=== PATIENT | female | born 1980 | race African-American/Black ===

== ENCOUNTER 2017-04-24 07:36 | Emergency (ER) | payer MEDICAID, OTHER ==
[~2017-04-24] VITALS: Ht 157.5 cm; Wt 64.0 kg
[~2017-04-24 07:36] MED LIST: FERR-63 PO; IBUP-779 PO; MULT-1116 PO
[2017-04-24 08:22] LABS: CLARITY URINE CLEAR (CLEAR); COLOR URINE YELLOW (YELLOW); GLUCOSE URINE NEGATIVE (NEGATIVE); KETONES URINE 1+ (NEGATIVE); LEUKOCYTE ESTERASE URINE NEGATIVE (NEGATIVE); NITRITE URINE NEGATIVE (NEGATIVE); OCCULT BLOOD URINE 3+ (NEGATIVE); PH URINE 6.5 (4.5-8.0); PROTEIN URINE NEGATIVE (NEGATIVE); SPECIFIC GRAVITY URINE 1.007 (1.005-1.030); UROBILINOGEN URINE 0.2 E.U./dL (0.2-1.0)
[2017-04-24 08:46] LABS: BASOPHILS % 0.4 % (0.0-2.0); EOSINOPHILS % 2.9 % (0.0-5.0); HEMATOCRIT. 42.4 % (36.0-48.0); HEMOGLOBIN. 14.2 g/dL (12.0-16.0); MEAN CORPUSCULAR HEMOGLOBIN 30.1 pg (28.0-32.0); MEAN CORPUSCULAR VOLUME 89.6 fL (81.0-99.0); MEAN PLATELET VOLUME 7.2 fl (7.4-10.4); MONOCYTES % 6.8 % (2.0-8.0); NEUTROPHILS % 72.9 % (40.0-76.0); PLATELET 291 x1000/uL (130-400); RED BLOOD CELL COUNT 4.73 mill/uL (4.2-5.4); RED CELL DISTRIBUTION WIDTH 13.7 % (11.6-14.6)
[2017-04-24 09:03] LABS: CARBON DIOXIDE 19 mEq/L (21-32); CHLORIDE 103 mEq/L (98-107)
[2017-04-24 12:20] VITALS: BP 113/75
== END 2017-04-24 12:41 | disposition home or self-care (01) ==
LOC: ER 07:36
DX: N85.8 Other specified noninflammatory disorders of uterus (principal); F17.200 Nicotine dependence, unspecified, uncomplicated
CPT/HCPCS: 36415; 76830; 76856; 80053; 81001; 81025; 85025; 99285; Z7610

== ENCOUNTER 2021-02-27 12:09 | Emergency (ER) | payer MEDICAID, OTHER ==
[~2021-02-27] VITALS: Ht 165.1 cm; Wt 60.0 kg
[2021-02-27] MEDS ORDERED: HYDROCODONE/ACETAMINOPHEN 5/325MG TABLET PO ONE (18:00)
[2021-02-27 18:23] LABS: BASOPHILS % 0.6 % (0.0-2.0); EOSINOPHILS % 4.4 % (0.0-5.0); HEMATOCRIT. 36.6 % (36.0-48.0); HEMOGLOBIN. 12.2 g/dL (12.0-16.0); MEAN CORPUSCULAR HEMOGLOBIN 29.7 pg (28.0-32.0); MEAN CORPUSCULAR VOLUME 88.9 fL (81.0-99.0); MEAN PLATELET VOLUME 7.3 fl (7.4-10.4); PLATELET 245 x1000/uL (130-400); RED BLOOD CELL COUNT 4.12 mill/uL (4.2-5.4); RED CELL DISTRIBUTION WIDTH 13.7 % (11.6-14.6)
[2021-02-27 18:30] LABS: CHLORIDE 106 mEq/L (98-107)
[2021-02-27 18:30] LABS: CLARITY URINE CLEAR (CLEAR); COLOR URINE YELLOW (YELLOW); KETONES URINE NEGATIVE (NEGATIVE); LEUKOCYTE ESTERASE URINE NEGATIVE (NEGATIVE); NITRITE URINE NEGATIVE (NEGATIVE); OCCULT BLOOD URINE NEGATIVE (NEGATIVE); PH URINE 6.5 (4.5-8.0); PROTEIN URINE NEGATIVE (NEGATIVE); SPECIFIC GRAVITY URINE 1.022 (1.005-1.030); UROBILINOGEN URINE 0.2 E.U./dL (0.2-1.0)
[2021-02-27] MEDS ORDERED: ACET-2708 MT (21:12)
[2021-02-27 21:13] VITALS: BP 125/67
== END 2021-02-27 21:35 | disposition home or self-care (01) ==
LOC: ER 12:09
DX: R10.32 Left lower quadrant pain (principal); M25.562 Pain in left knee; M25.561 Pain in right knee; M25.512 Pain in left shoulder; Z98.890 Other specified postprocedural states
CPT/HCPCS: 36415; 74176; 76830; 76856; 80053; 81003; 81025; 85025; 93970; 99285

== ENCOUNTER 2025-01-26 16:57 | Emergency (ER) | payer OTHER ==
[~2025-01-26] VITALS: Ht 157.5 cm; Wt 59.0 kg
[~2025-01-26 16:57] MED LIST changes: +ACET-2708 MT
[2025-01-26 17:03] VITALS: O2SAT 99
[2025-01-26 17:05] VITALS: TEMP 36.9
[2025-01-26] MEDS ORDERED: ACET-2708 MT (20:05)
[2025-01-26] MEDS: KETOROLAC 30MG/ML VIAL IM ONE (20:45)
[2025-01-26 20:49] VITALS: BP 123/90; PULSE 77; RESP 18; O2SAT 98
== END 2025-01-26 20:50 | disposition home or self-care (01) ==
LOC: ER 16:57
DX: M25.562 Pain in left knee (principal); F20.9 Schizophrenia, unspecified; F12.90 Cannabis use, unspecified, uncomplicated; Z79.899 Other long term (current) drug therapy; X50.1XXA Overexertion from prolonged static or awkward postures, initial encounter; Y93.89 Activity, other specified; Y92.89 Other specified places as the place of occurrence of the external cause; Y99.8 Other external cause status
CPT/HCPCS: 99283; 81025; 73562; 96372; J1885